=== PATIENT | female | born 1960 | race African-American/Black ===

== ENCOUNTER 2016-07-21 10:45 | Emergency (ER) | payer BC, OTHER ==
[~2016-07-21] VITALS: Ht 162.6 cm; Wt 56.7 kg
[2016-07-21 10:49] VITALS: BP 140/65; PULSE 69; RESP 22; TEMP 97.4; O2SAT 100
--- NOTE | 2016-07-21 10:55 | NUR ---
Pt placed to ER bed 05 and to gown. Pt report given to NEEL Leonardo.
--- NOTE | 2016-07-21 11:00 | NUR ---
# 20 gauge angiocath placed to LAC. Use of asceptic technique. Opsite placed over site. Blood return noted. Blood for lab drawn from site. Flushed with 10 cc of normal saline. No evidence of infiltration noted. Patient tolerated well.
--- NOTE | 2016-07-21 11:05 | NUR ---
Patient presents to the emergency department with complaints 10/10 epigastric area pain that has been getting worse since eating in n out last night. Patient had diarrhea last night. denies nausea at this time. Just states she has pain and that she did not take anything for it at home. will continue to monitor. no distress noted. family at bedside
--- NOTE | 2016-07-21 11:10 | NUR ---
Note james in ED - 07/21/16 at 1251 by EMILEE Patient presents to the emergency department with complaints of heavy vaginal bleeding since friday and 12/23 RLQ pain. Patient states she is soaking 1 overnight pad every 2 hours. will continue to monitor
[2016-07-21] MEDS ORDERED: ONDANSETRON HCL 4 MG/2 ML VIAL IVP ONE (11:15)
[2016-07-21] MEDS ORDERED: NACL 0.9% 1,000 ML IV ONE (11:30)
[2016-07-21] MEDS ORDERED: KETOROLAC TROMETHAMINE 30 MG VIAL IVP ONE (11:30)
[2016-07-21] MEDS ORDERED: PROCHLORPERAZINE EDISYLATE 10 MG/2 ML VIAL IVP ONE (11:30)
[2016-07-21] MEDS ORDERED: MAG HYDROX/AL HYDROX/SIMETH 30 ML, LIDOCAINE VISCOUS 2% 15ML (PO) 10 ML, BELLADONNA ALK... PO ONE ×3 (11:30)
[2016-07-21 11:37] LABS: BASOPHILS # (AUTO) 0.2 K/uL (0.0-0.2); BASOPHILS % (AUTO) 1.4 % (0.0-2.0); EOSINOPHILS % (AUTO) 0.2 % (0.0-4.0); HEMOGLOBIN 13.6 g/dL (12.0-16.0); LYMPHOCYTES # (AUTO) 1.2 K/uL (1.0-5.5); LYMPHOCYTES % (AUTO) 9.9 % (20.5-51.5); MEAN CORPUSCULAR HEMOGLOBIN 32 pg (27-31); MEAN CORPUSCULAR HGB CONC 34 % (32-36); MEAN CORPUSCULAR VOLUME 94 fL (79.0-98.0); MONOCYTES # (AUTO) 0.4 K/uL (0.0-1.0); MONOCYTES % (AUTO) 2.9 % (1.7-9.3); NEUTROPHILS # (AUTO) 10.4 K/uL (1.8-7.7); NEUTROPHILS % (AUTO) 85.6 % (40.0-70.0); PLATELET COUNT (AUTO) 192 K/uL (130-430); RED BLOOD CELL COUNT(AUTO) 4.26 MIL/uL (4.2-6.2); RED CELL DISTRIBUTION WIDTH 12.4 % (9.0-15.0); WHITE BLOOD COUNT (AUTO) 12.2 K/uL (4.8-10.8)
[2016-07-21 11:39] LABS: CALCIUM 9.7 mg/dL (8.4-11.0); CREATININE 0.64 mg/dL (0.55-1.30); POTASSIUM 3.4 mmol/L (3.5-5.1)
[2016-07-21 11:44] LABS: ALBUMIN 4.1 g/dL (3.4-4.8); TOTAL BILIRUBIN 0.6 mg/dL (0.0-1.0); TOTAL PROTEIN, SERUM 7.8 g/dL (6.4-8.3)
--- NOTE | 2016-07-21 11:45 | NUR ---
Dr Cheng at bedside examining patient
--- NOTE | 2016-07-21 12:47 | NUR ---
report given to Nicole SHAIKH, care endorsed
[2016-07-21 13:30] LABS: BILIRUBIN,URINE NEGATIVE (NEGATIVE); BLOOD, URINE NEGATIVE (NEGATIVE); CLARITY/URINE CLOUDY (CLEAR); COLOR,URINE YELLOW (YELLOW); GLUCOSE,URINE NEGATIVE (NEGATIVE); KETONES,URINE TRACE (NEGATIVE); LEUKOCYTE ESTERASE ,URINE NEGATIVE (NEGATIVE); NITRITE, URINE NEGATIVE (NEGATIVE); PH,URINE 8.5 (5.0-8.0); PROTEIN URINE TRACE (NEGATIVE); UROBILINOGEN,URINE 0.2 (0.2-1.0)
--- NOTE | 2016-07-21 13:40 | NUR ---
Pt resting comfortably at this time, denies pain , nausea or vomiting.
[2016-07-21 13:49] LABS: BACTERIA,URINE RARE /HPF (None Seen); RBC,URINE 0-3 /HPF (0-3); URINE AMORPHOUS PHOSPHATES 4+ /HPF (None Seen); WBC,URINE 0-3 /HPF (0-3)
[2016-07-21] MEDS ORDERED: HYDROmorphone 1 MG INJ. 1 MG/ML AMPUL IVP ONE (14:00)
--- NOTE | 2016-07-21 14:36 | NUR ---
Patient given written and verbal discharge instructions and verbalizes understanding. ER MD discussed with patient the results and treatment provided. Given copies of tests performed in ER. Patient in stable condition. ID arm band removed. IV catheter removed intact and dressing applied, no active bleeding. Rx of Ibuprofen and Reyno given. Patient educated on pain management and to follow up with PMD. Pain Scale 0/10 . Opportunity for questions provided and answered.
[2016-07-21 14:37] VITALS: BP 138/65; PULSE 69; RESP 22; TEMP 97.4; O2SAT 100
== END 2016-07-21 14:37 | disposition home or self-care (01) ==
LOC: SED 10:45
DX: K29.70 Gastritis, unspecified, without bleeding (principal); D72.829 Elevated white blood cell count, unspecified; E87.6 Hypokalemia; R74.0 Nonspecific elevation of levels of transaminase and lactic acid dehydrogenase [LDH]; R03.0 Elevated blood-pressure reading, without diagnosis of hypertension
CPT/HCPCS: 36415; 74176; 80053; 81000; 83690; 84484; 85025; 93005; 96361; 96374; 96375; 99285; J0780; J1170; J1885; J2001; J2405; J7030